=== PATIENT | female | born 1985 | race African-American/Black ===

== ENCOUNTER 2017-04-16 15:14 | Emergency (ER) | payer MEDICAID ==
--- NOTE | 2017-04-16 16:08 | ER Document Report ---
ED GI/ - General Chief Complaint: Vaginal Bleeding Stated Complaint: VAGINAL BLEEDING, RIGHT LEG PAIN Time Seen by Provider: 04/16/17 15:49 Mode of Arrival: Ambulatory Information source: Patient TRAVEL OUTSIDE OF THE [place] IN LAST 30 DAYS: No - HPI Patient complains to provider of: , Vaginal bleeding Onset: This morning Timing/Duration: Sudden Quality of pain: Achy, Cramping Severity at maximum: Mild Severity in ED: Mild Pain Level: 1 Vaginal bleeding (Compared to normal period): Spotting Associated symptoms: None Exacerbated by: Denies Relieved by: Denies Notes: 04/16/17 16:57 Patient is a 31-year-old female who is , with a recent positive home test, last menstrual period 03/09/2017, who presents to the emergency room complaining of vaginal bleeding, pelvic cramping and right leg pain for the past month - Related Data Allergies/Adverse Reactions: No Known Allergies Allergy (Unverified 04/16/17 15:19) Past Medical History - General Information source: Patient Last Menstrual Period: 03/09/2017 - Social History Smoking Status: Never Smoker Chew tobacco use (# tins/day): No Frequency of alcohol use: None Drug Abuse: None Family History: Reviewed & Not Pertinent Patient has suicidal ideation: No Patient has homicidal ideation: No Renal/ Medical History: Denies: Hx Peritoneal Dialysis Review of Systems - Review of Systems Constitutional: No symptoms reported EENT: No symptoms reported Cardiovascular: No symptoms reported Respiratory: No symptoms reported Gastrointestinal: No symptoms reported Genitourinary: No symptoms reported Female Genitourinary: See HPI Musculoskeletal: See HPI Skin: No symptoms reported Hematologic/Lymphatic: No symptoms reported Neurological/Psychological: No symptoms reported -: Yes All other systems reviewed and negative Physical Exam - Vital signs Vitals: Temp Pulse Resp BP Pulse Ox 99.1 F 77 16 139/85 H 98 04/16/17 15:19 04/16/17 15:19 04/16/17 15:19 04/16/17 15:19 04/16/17 15:19 Interpretation: Normal - General General appearance: Appears well, Alert - HEENT Head: Normocephalic, Atraumatic Eyes: Normal Pupils: PERRL - Respiratory Respiratory status: No respiratory distress Chest status: Nontender Breath sounds: Normal Chest palpation: Normal - Cardiovascular Rhythm: Regular Heart sounds: Normal auscultation Murmur: No - Abdominal Inspection: Normal Distension: No distension Bowel sounds: Normal Tenderness: Nontender Organomegaly: No organomegaly - Genitourinary External exam: Normal Speculum exam: Cervix closed Vaginal bleeding: Moderate Bimanuel exam: Normal - Back Back: Normal, Nontender - Extremities General upper extremity: Normal inspection, Nontender, Normal color, Normal ROM , Normal temperature General lower extremity: Normal inspection, Tender - Palpate over right posterior thigh pain with range of motion testing, distal sensation and motor is intact with 2+ DP pulses, Normal color, Normal temperature, Normal weight bearing. No: Chevy's sign - Neurological Neuro grossly intact: Yes Cognition: Normal Orientation: AAOx4 Tabitha Coma Scale Eye Opening: Spontaneous Tabitha Coma Scale Verbal: Oriented Tabitha Coma Scale Motor: Obeys Commands [place] Coma Scale Total: 15 Speech: Normal Motor strength normal: LUE, RUE, LLE, RLE Sensory: Normal - Psychological Associated symptoms: Normal affect, Normal mood - Skin Skin Temperature: Warm Skin Moisture: Dry Skin Color: Normal Course - Re-evaluation Re-evalutation: 04/16/17 19:26 lab and imaging findings were discussed with patient at bedside which are consistent with likely miscarriage, however other possibilities such as being earlier than patient reports, were discussed with patient, she was advised to follow-up with [facility] in 2-3 days for repeat testing or return if any additional concerns, patient acknowledges understanding and agreement with this plan - Vital Signs Vital signs: Temp Pulse Resp BP Pulse Ox 98.3 F 69 20 125/81 99 04/16/17 19:25 04/16/17 19:25 04/16/17 19:25 04/16/17 19:25 04/16/17 19:25 - Laboratory Result Diagrams: 04/16/17 16:00 04/16/17 16:00 Laboratory results interpreted by me: 04/16/17 04/16/17 16:00 16:23 Beta HCG, Quant 372.10 H Urine Blood SMALL H Urine Urobilinogen 4.0 H Urine Ascorbic Acid 20 H - Diagnostic Test Radiology reviewed: Image reviewed, Reports reviewed Discharge - Discharge Clinical Impression: Vaginal bleeding before 22 weeks gestation Leg pain Qualifiers: Laterality: right Qualified Code(s): M79.604 - Pain in right leg Condition: Stable Disposition: HOME, SELF-CARE Instructions: Miscarriage Impending ([facility]), Vaginal Bleeding ([facility]), Bleeding During Early ([facility]), Leg Pain Nonspecific ([facility]), [employer] [facility] Additional Instructions: Follow up with your primary care provider and OBGYN in one to 2 days. Return to the emergency room immediately if symptoms worsen or any additional concerns. hormone level today is 327 and your [facility] ultrasound did not show any intrauterine . It is important for you to follow-up for repeat testing in 2-3 days and have your hormone level rechecked.
[2017-04-16 16:24] LABS: ABSOLUTE EOSINOPHILS # (AUTO) 0.2 10^3/uL (0.0-0.6); ABSOLUTE LYMPHOCYTES (AUTO) 1.6 10^3/uL (0.5-4.7); ABSOLUTE MONOCYTES (AUTO) 0.6 10^3/uL (0.1-1.4); ABSOLUTE NEUT (AUTO) 4.9 10^3/uL (1.7-8.2); BASOPHILS % (AUTO) 0.2 % (0-2); EOSINOPHILS % (AUTO) 2.9 % (0-6); HEMATOCRIT 37.4 % (36.0-47.0); HGB HCT DIFFERENCE -1.4; LYMPHOCYTES % (AUTO) 21.2 % (13-45); MEAN CORPUSCULAR HEMOGLOBIN 28.5 pg (27.0-33.4); MEAN CORPUSCULAR VOLUME 89 fl (80-97); RED CELL DISTRIBUTION WIDTH 13.5 % (11.5-14.0); SEGMENTED NEUTROPHILS % (AUTO) 67.7 % (42-78); WHITE BLOOD COUNT 7.3 10^3/uL (4.0-10.5)
[2017-04-16 16:40] LABS: ALANINE AMINOTRANSFERASE 23 U/L (9-52); ALBUMIN 4.6 g/dL (3.5-5.0); ALKALINE PHOSPHATASE 50 U/L (38-126); ANION GAP 10 (5-19); ASPARTATE AMINO TRANSFERASE 18 U/L (14-36); BILIRUBIN,DIRECT 0.2 mg/dL (0.0-0.4); BILIRUBIN,TOTAL 0.7 mg/dL (0.2-1.3); BLOOD UREA NITROGEN 13 mg/dL (7-20); CALCIUM 9.8 mg/dL (8.4-10.2); CARBON DIOXIDE 26 mmol/L (22-30); CHLORIDE 106 mmol/L (98-107); CREATININE RESULT 0.63 mg/dL (0.52-1.25); GLUCOSE 81 mg/dL (75-110); LIPASE 61.3 U/L (23-300); POTASSIUM 3.7 mmol/L (3.6-5.0); SODIUM 142.4 mmol/L (137-145); TOTAL PROTEIN 7.6 g/dL (6.3-8.2)
[2017-04-16 16:42] LABS: APPEARANCE,URINE SLIGHTLY-CLOUDY; BILIRUBIN,URINE NEGATIVE (NEGATIVE); GLUCOSE, URINE NEGATIVE (NEGATIVE); KETONES,URINE NEGATIVE (NEGATIVE); LEUKOCYTE ESTERASE,URINE NEGATIVE (NEGATIVE); NITRITE,URINE NEGATIVE (NEGATIVE); PROTEIN,URINE NEGATIVE (NEGATIVE); URINE SPECIFIC GRAVITY 1.027
[2017-04-16 18:02] LABS: CHLAM PCR NOT DETECTED (NOT DETECT)
--- NOTE | 2017-04-16 18:20 | RADIOLOGY REPORT (SQ) ---
EXAM DESCRIPTION: U/S OB TRANSVAG W/DOPPLER COMPLETED DATE/TIME: 04/16/2017 5:54 pm REASON FOR STUDY: , vaginal bleeding COMPARISON: None. TECHNIQUE: Transvaginal static and realtime grayscale images acquired of the pelvis. Additional spencer cted spectral and color Doppler images recorded. All images stored on PACs. [facility] LIMITATIONS: None. FINDINGS: UTERUS: No visualized intrauterine . RIGHT ADNEXA: Normal ovary with normal vascular flow. No adnexal free fluid. Small 1.7 cm simple appearing paraovarian cyst. Mildly heterogeneous region in the right ovary, diff icult to fully exclude ectopic. LEFT ADNEXA: Normal ovary with normal vascular flow. No adnexal free fluid. No adnexal masses. FREE FLUID: Yes, mild to moderate fluid in the cul-de-sac and about the adnexae. OTHER: No other significant finding. IMPRESSION: NO VISUALIZED INTRA- OR EXTRAUTERINE . MILD HETEROGENEITY IN THE RIGHT OVARY, NO CLEAR MASS BUT OTHERWISE INDETERMINATE FOR ECTOPIC. FOLLOW-UP ULTRASOUND AND SERIAL BHCG LEVELS STRONGLY RECOMMENDED TO ACCURATELY ASSESS STATU S. TECHNICAL DOCUMENTATION: JOB ID: [id number] [employer]- All Rights Reserved
--- NOTE | 2017-04-16 19:18 | RADIOLOGY REPORT (SQ) ---
EXAM DESCRIPTION: VENOUS UNILATERAL LOWER COMPLETED DATE/TIME: 04/16/2017 6:53 pm REASON FOR STUDY: right leg pain COMPARISON: None. TECHNIQUE: Dynamic and static arthur scale and color images acquired of the right leg venous system. S elected spectral images acquired with additional compression and augmentation maneuvers. The contrala teral common femoral vein and saphenofemoral junction were also imaged. Images stored on PACS. LIMITATIONS: None. FINDINGS: COMMON FEMORAL: Normal phasicity, compression and augmentation. No visualized echogenic ma terial on arthur scale. No defects on color images. FEMORAL: Normal compression and augmentation. No visualized echogenic material on arthur scale. No defe cts on color images. POPLITEAL: Normal compression, augmentation. No visualized echogenic material on arthur scale. No defec ts on color images. CALF VESSELS: Normal compression, augmentation. No visualized echogenic material on arthur scale. No de fects on color images. GSV and SSV: Normal compression, augmentation. No visualized echogenic material on arthur scale. No def ects on color images. ANY DEEP VENOUS INSUFFICIENCY: Not evaluated. ANY EVIDENCE OF POPLITEAL CYST: No. OTHER: No other significant finding. CONTRALATERAL COMMON FEMORAL VEIN AND SAPHENOFEMORAL JUNCTION: Normal phasicity, compression and augmentation. No visualized echogenic material on arthur scale. No de fects on color images. IMPRESSION: NO EVIDENCE DVT OR SVT IN THE RIGHT LEG. TECHNICAL DOCUMENTATION: JOB ID: [id number] [employer]- All Rights Reserved
[2017-04-16 19:26] VITALS: BP 125/81
== END 2017-04-16 19:25 | disposition home or self-care (01) ==
LOC: ER 15:14
DX: O20.9 Hemorrhage in early pregnancy, unspecified (principal); O99.89 Other specified diseases and conditions complicating pregnancy, childbirth and the puerperium; M79.651 Pain in right thigh; O26.891 Other specified pregnancy related conditions, first trimester; R10.2 Pelvic and perineal pain; Z3A.01 Less than 8 weeks gestation of pregnancy
CPT/HCPCS: 36415; 76817; 80053; 81001; 83690; 84702; 85025; 86900; 86901; 87086; 87210; 87491; 87591; 93971; 93976; 99284

== ENCOUNTER 2020-05-27 03:23 | Emergency (ER) | payer BC, MEDICAID ==
[2020-05-27] MEDS ORDERED: NORMAL SALINE 1000 ML 1,000 ML IV ONE (05:33)
[2020-05-27] MEDS ORDERED: ONDANSETRON HCL INJ/PF 4 MG/2 ML SDV IV ONE (05:33)
--- NOTE | 2020-05-27 05:34 | ER Document Report ---
ED Medical Screen (RME) - General Chief Complaint: Epigastric Pain Stated Complaint: STOMACH PAIN,VOMITING,HURTS TO BREATHE Time Seen by Provider: 05/27/20 05:32 Notes: 34-year-old female with chief complaint of upper abdominal pain and vomiting for the past 4 to 5 days. She denies fevers, cough, abnormal bowel movements, hematemesis patient denies any surgeries, denies any past medical history or daily prescribed medications. TRAVEL OUTSIDE OF THE [place] IN LAST 30 DAYS: No - Related Data Allergies/Adverse Reactions: No Known Allergies Allergy (Unverified 04/16/17 15:19) Past Medical History Renal/ Medical History: Denies: Hx Peritoneal Dialysis Physical Exam - Abdominal Tenderness: Tender - Tender in the right upper quadrant, epigastric areas mainly, slightly in the left upper quadrant, otherwise unremarkable Course - Re-evaluation Re-evalutation: Patient had just finished vomiting when I entered the room. She still declines pain medication. Work-up pending. I have greeted and performed a rapid initial assessment of this patient. A comprehensive ED assessment and evaluation of the patient, analysis of test results and completion of the medical decision making process will be conducted by additional ED providers.
[2020-05-27 06:05] LABS: ABSOLUTE EOSINOPHILS # (AUTO) 0.5 10^3/uL (0.0-0.6); ABSOLUTE LYMPHOCYTES (AUTO) 1.4 10^3/uL (0.5-4.7); ABSOLUTE NEUT (AUTO) 11.4 10^3/uL (1.7-8.2); BASOPHILS % (AUTO) 0.3 % (0-2); EOSINOPHILS % (AUTO) 3.2 % (0-6); HEMATOCRIT 43.3 % (36.0-47.0); HEMOGLOBIN 14.9 g/dL (12.0-15.5); LYMPHOCYTES % (AUTO) 9.9 % (13-45); MEAN CORPUSCULAR HEMOGLOBIN 30.1 pg (27.0-33.4); MEAN CORPUSCULAR HGB CONC 34.3 g/dL (32.0-36.0); MEAN CORPUSCULAR VOLUME 88 fl (80-97); MONOCYTES % (AUTO) 6.8 % (3-13); PLATELET COUNT 277 10^3/uL (150-450); RED BLOOD COUNT 4.94 10^6/uL (3.72-5.28); RED CELL DISTRIBUTION WIDTH 14.1 % (11.5-14.0); SEGMENTED NEUTROPHILS % (AUTO) 79.8 % (42-78); TOTAL CELLS COUNTED % (AUTO) 100 %; WHITE BLOOD COUNT 14.3 10^3/uL (4.0-10.5)
[2020-05-27 06:11] LABS: APPEARANCE,URINE SLIGHTLY-CLOUDY; BILIRUBIN,URINE NEGATIVE (NEGATIVE); COLOR,URINE YELLOW; GLUCOSE, URINE NEGATIVE (NEGATIVE); KETONES,URINE TRACE mg/dL (NEGATIVE); LEUKOCYTE ESTERASE,URINE NEGATIVE (NEGATIVE); NITRITE,URINE NEGATIVE (NEGATIVE); PROTEIN,URINE 100 mg/dL (NEGATIVE); URINE SPECIFIC GRAVITY 1.017; UROBILINOGEN,URINE NEGATIVE mg/dL (<2.0)
--- NOTE | 2020-05-27 06:17 | ER Document Report ---
ED GI/ - General Chief Complaint: Nausea/Vomiting Stated Complaint: STOMACH PAIN,VOMITING,HURTS TO BREATHE Time Seen by Provider: 05/27/20 05:32 Primary Care Provider: ROCHELLE ECHEVERRIA MD [ACTIVE STAFF] - Follow up in 1 week ROLAND REDDY MD [COMMUNITY BASED STAFF] - Follow up in 1 week Notes: Patient is a 34-year-old female that comes to the Emergency Department with chief complaint of upper abdominal pain and vomiting for the past 4-5 days. She denies fevers, cough, abnormal bowel movements (other than being loose but still infrequent). She denies hematemesis or hematochezia. Patient denies any surgeries. Patient denies any past medical history or daily prescribed medications. LMP within the past month. She denies any sick contacts. She denies any recent travel. TRAVEL OUTSIDE OF THE [place] IN LAST 30 DAYS: No - Related Data Allergies/Adverse Reactions: No Known Allergies Allergy (Verified 05/27/20 05:44) Past Medical History - General Information source: Patient - Social History Smoking Status: Never Smoker Chew tobacco use (# tins/day): No Frequency of alcohol use: Occasional Drug Abuse: Marijuana Lives with: Family Family History: Reviewed & Not Pertinent Renal/ Medical History: Denies: Hx Peritoneal Dialysis Surgical Hx: Negative - Immunizations Immunizations up to date: Yes Hx Diphtheria, Pertussis, Tetanus Vaccination: Yes Review of Systems - Review of Systems Constitutional: No symptoms reported EENT: No symptoms reported Cardiovascular: No symptoms reported Respiratory: No symptoms reported Gastrointestinal: See HPI Genitourinary: No symptoms reported Female Genitourinary: No symptoms reported Musculoskeletal: No symptoms reported Skin: No symptoms reported Hematologic/Lymphatic: No symptoms reported Neurological/Psychological: No symptoms reported Physical Exam - Vital signs Vitals: Temp Pulse Resp BP Pulse Ox 98.4 F 60 16 138/89 H 100 05/27/20 05:45 05/27/20 05:45 05/27/20 05:45 05/27/20 05:45 05/27/20 05:45 - Notes Notes: GENERAL: Alert, interacts well. No acute distress. HEAD: Normocephalic, atraumatic. EYES: Pupils equal, round, and reactive to light. Extraocular movements intact. ENT: Oral mucosa dry, tongue midline. Oropharynx unremarkable. Airway patent. NECK: Full range of motion. Supple. Trachea midline. No lymphadenopathy. LUNGS: Clear to auscultation bilaterally, no wheezes, rales, or rhonchi. No respiratory distress. Non-tender chest wall. HEART: Regular rate and rhythm. No murmur ABDOMEN: Generalized upper abdominal tenderness, nonspecific, no guarding, lower abdomen benign. Bowel sounds present throughout. EXTREMITIES: Moves all 4 extremities spontaneously. No edema, normal radial and dorsalis pedis pulses bilaterally. No cyanosis. BACK: no cervical, thoracic, lumbar midline tenderness. No saddle anesthesia, normal distal neurovascular exam. Moves all extremities in full range of motion. NEUROLOGICAL: Alert and oriented x3. Normal speech. Cranial nerves II through XII grossly intact. Strength 5/5 in all extremities. PSYCH: Normal affect, normal mood. SKIN: Warm, dry, normal turgor. No rashes or lesions noted. Course - Re-evaluation Re-evalutation: After IV fluids and Zofran patient states she already feels much better. She does have generalized upper abdominal tenderness but ultrasound of the upper abdomen is unremarkable. CBC shows leukocytosis, nonspecific given vomiting. Chemistry shows low potassium and slightly elevated creatinine at 1.3. However EKG is unremarkable, magnesium unremarkable, patient was given p.o. potassium, p.o. Carafate and Pepcid, fluids, she kept all of this down. Patient states she feels much improved. This could be gastritis but I suspect patient has devel oped cyclic vomiting secondary to cannabis abuse. I did discuss this with her, I discussed precautions, close primary care follow-up for recheck, and return precautions. Patient states full agreement, appreciation, stable and well- appearing at time of discharge. - Vital Signs Vital signs: Temp Pulse Resp BP Pulse Ox 98.4 F 60 16 138/89 H 100 05/27/20 05:45 05/27/20 05:45 05/27/20 05:45 05/27/20 05:45 05/27/20 05:45 - Laboratory Result Diagrams: 05/27/20 05:50 05/27/20 05:50 Laboratory results interpreted by me: 05/27/20 05/27/20 05/27/20 05:00 05:50 05:50 WBC 14.3 H RDW 14.1 H Lymph % (Auto) 9.9 L Absolute Neuts (auto) 11.4 H Seg Neutrophils % 79.8 H Sodium 136.5 L Potassium 3.0 L* Chloride 94 L BUN 39 H Creatinine 1.35 H Est GFR ( Amer) 54 L Est GFR (MDRD) Non-Af 45 L Glucose 113 H Magnesium Total Protein 8.6 H Urine Protein 100 H Urine Ketones TRACE H Urine Blood MODERATE H 05/27/20 05:50 WBC RDW Lymph % (Auto) Absolute Neuts (auto) Seg Neutrophils % Sodium Potassium Chloride BUN Creatinine Est GFR ( Amer) Est GFR (MDRD) Non-Af Glucose Magnesium 2.5 H Total Protein Urine Protein Urine Ketones Urine Blood - EKG Interpretation by Me Additional EKG results interpreted by me: EKG shows sinus rhythm at a rate of 52, normal axis, QTC 439, no T wave inversions or ST segment changes in consecutive leads Discharge - Discharge Clinical Impression: Dehydration, Hypokalemia Vomiting Qualifiers: Vomiting type: unspecified Vomiting Intractability: non-intractable Nausea pr esence: with nausea Qualified Code(s): R11.2 - Nausea with vomiting, unspecified Condition: Stable Disposition: HOME, SELF-CARE Additional Instructions: Today you were seen and treated for vomiting, dehydration, low potassium. Your kidney functioning and your potassium both need to be rechecked by primary care (see referral, call for followup). Increase potassium in your diet. Take the Carafate and Pepcid for healing of your stomach and upper abdominal tract, take the Zofran if needed for nausea. Avoid spicy foods, smoking, alcohol, caffeine, NSAIDs. Avoid marijuana, high concentrations of this can make you vomit continuously (cyclic vomiting syndrome). Come back if you are worse including if your vomiting will not stop, you develop severe worse pain, you develop fever, you vomit blood, you have black stools, or any other concerning symptoms. Prescriptions: Sucralfate [Carafate 1 gm Tablet] 1 gm PO QID #20 tablet Famotidine [Pepcid 20 mg Tablet] 20 mg PO BID #20 tablet Ondansetron [Zofran Odt 4 mg Tablet] 1 - 2 tab PO Q4H PRN #20 tab.rapdis PRN Reason: For Nausea/Vomiting Forms: Return to Work Referrals: ROLAND REDDY MD [COMMUNITY BASED STAFF] - Follow up in 1 week ROCHELLE ECHEVERRIA MD [ACTIVE STAFF] - Follow up in 1 week
[2020-05-27 06:24] LABS: ALBUMIN 4.9 g/dL (3.5-5.0); ALKALINE PHOSPHATASE 94 U/L (38-126); ANION GAP 17 (5-19); ASPARTATE AMINO TRANSFERASE 30 U/L (14-36); BILIRUBIN,DIRECT 0.2 mg/dL (0.0-0.4); BILIRUBIN,TOTAL 0.9 mg/dL (0.2-1.3); BLOOD UREA NITROGEN 39 mg/dL (7-20); CALCIUM 9.6 mg/dL (8.4-10.2); CARBON DIOXIDE 26 mmol/L (22-30); CHLORIDE 94 mmol/L (98-107); GLUCOSE 113 mg/dL (75-110); TOTAL PROTEIN 8.6 g/dL (6.3-8.2)
[2020-05-27] MEDS ORDERED: SUCRALFATE 1 GM TABLET PO ONE (07:22)
[2020-05-27] MEDS ORDERED: POTASSIUM CHLORIDE 10 MEQ TABLET.ER PO ONE (07:22)
[2020-05-27] MEDS ORDERED: FAMOTIDINE 20 MG TABLET PO ONE (07:22)
--- NOTE | 2020-05-27 07:31 | RADIOLOGY REPORT (SQ) ---
EXAM DESCRIPTION: US ABDOMEN LIMITED COMPLETED DATE/TME: 05/27/2020 05:33 CLINICAL HISTORY: 34 years Female, RUQ and epigastric pain, vomiting Comparison: None. LIMITATIONS: Bowel gas artifact. FINDINGS: Gallbladder, negative sonographic Parks's test, liver, a 0.2-cm diameter common bile duct, no intrahepatic ductal dilation, hepatopetal patent flow of the portal vein, mildly echogenic 11-cm right kidney, mildly echogenic pancreas, visualized vasculature/abdominal aorta, and no significant ascites appear otherwise unremarkable. IMPRESSION: No acute findings.
[2020-05-27 07:55] LABS: URINE AMPHETAMINES SCREEN NEGATIVE; URINE BARBITURATES SCREEN NEGATIVE; URINE BENZODIAZEPINES SCREEN NEGATIVE; URINE COCAINE SCREEN NEGATIVE; URINE METHADONE SCREEN NEGATIVE; URINE PHENCYCLIDINE SCREEN NEGATIVE
[2020-05-27 07:56] LABS: URINE MARIJUANA (THC) SCREEN UNCONFIRMED POSITIVE
[2020-05-27 08:20] VITALS: BP 112/88
--- NOTE | 2020-05-27 15:06 | EKG REPORT ---
SEVERITY:- NORMAL ECG - SINUS BRADYCARDIA : Confirmed by: Tristan Linton MD 27-May-2020 15:05:11
== END 2020-05-27 08:20 | disposition home or self-care (01) ==
LOC: ER 03:23
DX: E86.0 Dehydration (principal); E87.6 Hypokalemia; R11.2 Nausea with vomiting, unspecified; R10.10 Upper abdominal pain, unspecified; R10.84 Generalized abdominal pain
CPT/HCPCS: 93005; 99284; 96374; 36415; 87086; 83690; 83735; 85025; 81025; 80053; 81001; 80307; 76705; 93010; J2405; J7030